=== PATIENT | male | born 2000 | race Caucasian/White ===

== ENCOUNTER 2018-11-09 15:13 | Emergency (ER) | payer SELFPAY ==
--- NOTE | 2018-11-09 16:29 | EDM.PDOC ---
ED HPI GENERAL MEDICAL PROBLEM - General Chief Complaint: Abdominal Pain Stated Complaint: MONICA NOTE FOR ACID REFLUX,FINGER PAIN Time Seen by Provider: 11/09/18 15:50 Source of Information: Reports: Patient, RN Notes Reviewed History Limitations: Reports: No Limitations - History of Present Illness INITIAL COMMENTS - FREE TEXT/NARRATIVE: Patient is a 18 year old male who presents to the ED for the evaluation of upper abdominal pain/acid reflux and right 4th finger pain. He states that he has had an issue with acid reflux for some time now, where he gets over heated and this aggravates his reflux and he vomits. He has recently started work at [employer] and they told him that he had to come get a note so that he may continue work there. The patient is a recent transplant from [place], he moved here 4 weeks ago. He states that he usually just takes TUMS for this, or drink some water and it gets better. He notes this is aggravated by buffalo (spicy) flavored foods, and caffeine. He admittedly drinks a lot of caffeine in energy drinks or otherwise. As for his finger pain, this is located in his right 4th digit, in the proximal phalanx. He states that he has pain mostly with flexion of the finger. He denies any trauma to the finger. He rates this at a 7-8/10. He denies any popping or clicking - Related Data Allergies Allergy/AdvReac Type Severity Reaction Status Date / Time No Known Allergies Allergy Verified 11/09/18 15:33 Home Meds: Home Meds . [No Known Home Meds] 11/09/18 [History] Past Medical History - Past Health History Medical/Surgical History: Denies Medical/Surgical History Social & Family History - Tobacco Use Smoking Status *Q: Current Every Day Smoker Years of Tobacco use: 5 Packs/Tins Daily: 0.5 - Caffeine Use Caffeine Use: Reports: Energy Drinks - Recreational Drug Use Recreational Drug Use: No Other Recreational Drug Type: last used at least 2 months ago ED ROS GENERAL - Review of Systems Review Of Systems: See Below Constitutional: Reports: No Symptoms HEENT: Reports: No Symptoms Respiratory: Reports: No Symptoms Cardiovascular: Reports: No Symptoms Endocrine: Reports: No Symptoms GI/Abdominal: Reports: Abdominal Pain (upper abdominal pain, ), Vomiting, Other (GERD). Denies: Diarrhea, Nausea Musculoskeletal: Reports: Joint Pain (finger pain) Skin: Reports: No Symptoms Neurological: Reports: No Symptoms Psychiatric: Reports: No Symptoms Hematologic/Lymphatic: Reports: No Symptoms Immunologic: Reports: No Symptoms ED EXAM, GI/ABD - Physical Exam Exam: See Below Exam Limited By: No Limitations General Appearance: Alert, WD/WN, No Apparent Distress Eyes: Bilateral: Normal Appearance Ears: Normal External Exam Nose: Normal Inspection Throat/Mouth: Normal Inspection, Normal Oropharynx Head: Atraumatic, Normocephalic Neck: Normal Inspection Respiratory/Chest: No Respiratory Distress, Lungs Clear, Normal Breath Sounds, No Accessory Muscle Use, Chest Non-Tender Cardiovascular: Normal Peripheral Pulses, Regular Rate, Rhythm, No Murmur GI/Abdominal Exam: Normal Bowel Sounds, Soft, Non-Tender, No Distention, No Mass Back Exam: Normal Inspection Extremities: Normal Inspection, Normal Capillary Refill Neurological: Alert, Oriented, Normal Cognition, Normal Gait, Normal Reflexes, No Motor/Sensory Deficits Psychiatric: Normal Affect, Normal Mood Skin Exam: Warm, Dry, Intact, Normal Color, No Rash Course - Vital Signs Last Recorded V/S: Last Vital Signs Temp 98.7 F 11/09/18 15:37 Pulse 71 11/09/18 15:37 Resp 20 11/09/18 15:37 BP 127/80 11/09/18 15:37 Pulse Ox 100 11/09/18 15:37 - Re-Assessments/Exams Free Text/Narrative Re-Assessment/Exam: 11/09/18 16:30 Pt was evaluated in the ED for his acid reflux/finger pain. He ultimately just needed a note for work, as has missed a few shifts. I have given general recommendations for omeprazole daily and tylenol/ibuprofen for the finger pain. I have also recommended that he set up care with a PCP. The patient understands this. Departure - Departure Time of Disposition: 16:58 Disposition: Home, Self-Care 01 Condition: Fair Clinical Impression: Finger pain, right Acid reflux Qualifiers: Esophagitis presence: esophagitis presence not specified Qualified Code(s): K21.9 - Gastro-esophageal reflux disease without esophagitis - Discharge Information *PRESCRIPTION DRUG MONITORING PROGRAM REVIEWED*: No *COPY OF PRESCRIPTION DRUG MONITORING REPORT IN PATIENT WILLIAN: No Instructions: Food Choices for Gastroesophageal Reflux Disease, Adult, Easy-to- Read, Heartburn, [id number], Gastroesophageal Reflux Disease, Adult, Easy-to- Read Forms: ED Department Discharge, ED Return to Work/School Form Additional Instructions: You have been evaluated in the ED for your upper abdominal pain/finger pain. You pain/symptoms are likely due to acid reflux. Recommend that you start a medication like Omeprazole, this is an over the counter stomach acid chassis engineer. Please take 1 tab by mouth once daily. You may have strained a ligament in your finger, it is not likely that it is broken. Please take 500mg Tylenol/ 600mg Ibuprofen every 6 hours as needed for pain relief, you may also ice the finger as tolerated. Recommend that you set up care with a primary care provider, please call to do so. Please return to the ED if your symptoms should change or worsen.
== END 2018-11-09 17:10 | disposition home or self-care (01) ==
LOC: JD.ED 15:13
DX: K21.9 Gastro-esophageal reflux disease without esophagitis (principal); M79.644 Pain in right finger(s); F17.210 Nicotine dependence, cigarettes, uncomplicated
CPT/HCPCS: 99282; 99283